=== PATIENT | male | born 1940 | race Caucasian/White ===

== ENCOUNTER 2023-06-10 22:03 | Inpatient (IN) ==
[2023-06-10 23:34] LABS: Adenovirus PCR Not Detected (NotDetected); Bordetella parapertussis PCR Not Detected (NotDetected); Bordetella pertussis PCR Not Detected (NotDetected); Chlamydia pneumoniae PCR Not Detected (NotDetected); Coronavirus 229E PCR Not Detected (NotDetected); Coronavirus HKU1 PCR Not Detected (NotDetected); Coronavirus NL63 PCR Not Detected (NotDetected); Coronavirus OC43PCR Not Detected (NotDetected); Human Metapneumovirus PCR Not Detected (NotDetected); Influenza A PCR Not Detected (NotDetected); Influenza B PCR Not Detected (NotDetected); Mycoplasma pneumoniae PCR Not Detected (NotDetected); Parainfluenza Virus 1 PCR Not Detected (NotDetected); Parainfluenza Virus 2 PCR Not Detected (NotDetected); Parainfluenza Virus 3 PCR Not Detected (NotDetected); Parainfluenza Virus 4 PCR Not Detected (NotDetected); Respiratory Syncytial VirusPCR Not Detected (NotDetected); Rhinovirus/Enterovirus PCR Not Detected (NotDetected)
[2023-06-10 23:45] LABS: Coronavirus CoV-2 (COVID19)PCR DETECTED (NotDetected)
--- NOTE | 2023-06-10 23:51 | XRay Report ---
SINGLE VIEW CHEST CLINICAL HISTORY: Sepsis FINDINGS: 2 AP upright chest radiographs are obtained. No prior studies are available for comparison at the time of dictation. A single-lead cardiac pacemaker is in place. The heart is enlarged noting a therosclerotic calcification of the thoracic aorta. The pulmonary vasculature is noncongested. A lobu lar density at the left lung base is indeterminate and may represent a Bochdalek hernia. The lungs an d pleural spaces are otherwise clear. No large pleural effusion or pneumothorax is seen. The skeletal structures are osteopenic. The bony thorax is grossly intact. IMPRESSION: 1. Cardiomegaly and cardiac pacemaker without radiographic evidence of congestive failure. 2. A lobular density at the left lung base is nonspecific and may represents a Bochdalek hernia. Airs pace consolidation is considered less likely. If warranted this could be further assessed with a ches t CT. ACT 112: Negative or not required by law. Electronically signed by: Alex Pham M.D. 06/10/2023 11:49 PM
[2023-06-11 03:00] LABS: Basophils # (auto) 0.07 K/uL (0.00-0.20); Basophils % (auto) 0.5 %; Eosinophils # (auto) 0.01 K/uL (0.00-0.50); Eosinophils % (auto) 0.1 %; Hematocrit (blood only) 42.6 % (42.0-52.0); Hemoglobin 14.5 g/dl (14.0-18.0); Immature Granulocytes # (auto) 0.15 K/uL (0.01-0.20); Immature Granulocytes % (auto) 1.1 %; Lymphocytes # (auto) 0.61 K/uL (1.20-3.40); Lymphocytes % (auto) 4.3 %; Mean Corpuscular Hemoglobin 27.9 pg (25.0-34.0); Mean Corpuscular Volume 82.1 fL (80.0-100.0); Mean Platelet Volume 9.7 fL (9.4-12.4); Monocytes # (auto) 1.56 K/uL (0.11-0.59); Neutrophils # (auto) 11.76 K/uL (1.40-6.50); Platelet Count 251 K/uL (130-400); RDW Coefficient of Variation 14.6 % (11.5-14.5); RDW Standard Deviation 42.9 fL (36.4-46.3); Red Blood Count 5.19 M/uL (4.70-6.10); White Blood Count 14.16 K/ul (4.8-10.8)
[2023-06-11 03:16] LABS: Alanine Aminotransferase 33 U/L (7-52); Albumin Globulin Ratio 1.4 (0.9-2); Albumin Level 4.3 gm/dl (3.4-5.0); Alkaline Phosphatase 92 U/L (34-104); Anion Gap 8 (3-11); Aspartate Aminotransferase 84 U/L (13-39); BUN Creatinine Ratio 27.9 (10-20); Bilirubin,Total 1.2 mg/dl (0.2-1.0); Blood Urea Nitrogen 17 mg/dl (6-23); Calcium 9.9 mg/dl (8.6-10.3); Carbon Dioxide 38 mmol/L (21-32); Chloride 84 mmol/L (98-107); Est GFR (African American) 107.8 ml/min; Globulin 3.1 gm/dl (2.5-4.0); Glucose 137 mg/dl (70-99(Fasting)); Magnesium 2.1 mg/dl (1.7-2.4); Sodium 130 mmol/L (136-145); Total Protein 7.4 gm/dl (6.0-8.3)
[2023-06-11 03:32] LABS: INR 1.1 (0.9-1.1); Partial Thromboplastin Ratio 1.4; Partial Thromboplastin Time 40 Seconds (21-31); Prothrombin Time 11.8 Seconds (9.0-12.0)
[2023-06-11 03:39] LABS: Troponin I High Sensitivity 129.5 pg/ml (0-20)
[2023-06-11] MEDS ORDERED: SODIUM CHLORIDE 0.9% 1,000 ML IV SCH (06:30)
--- NOTE | 2023-06-11 06:39 | Emergency Department Note ---
Impression & Plan Generalized weakness, Elevated troponin, COVID-19, Hypokalemia, Hyponatremia ED Provider Note ED Provider Note NAME: WADE VICENTE AGE:83 SEX: Male : 1940 ARRIVES VIA: Private vehicle INFORMANT: Patient, family ED PROVIDER(s): Danette Umana DO CHIEF COMPLAINT: Generalized weakness HPI: This is an 83-year-old male brought in by family due to concern for increased weakness. Patient typically very independent ambulatory on his own according to granddaughter at bedside. 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 No issues with the G-tube recently. They have noticed increased mucus production and spitting from the patient. He denies worsening cough, fevers, nasal congestion, difficulty breathing, chest pain, or abdominal pain. Daughter states he was unable to get up out of a chair and she and another family member had to physically help him up to get him to the bathroom which is unusual. No recent change in medications. Patient does have a history of A-fib. PAST MEDICAL HISTORY:See Below PAST SURGICAL HISTORY:See Below FAMILY HISTORY:See Below SOCIAL HISTORY:See Below HOME MEDICATIONS:See Below ALLERGIES:See Below VITALS:See Below PHYSICAL EXAMINATION: GENERAL: alert, well appearing, well nourished, no distress, non-toxic EYE EXAM: normal conjunctiva, PERRL and EOM's grossly intact OROPHARYNX: no exudate, no erythema, lips, buccal mucosa, and tongue normal and mucous membranes are moist NECK: supple, no nuchal rigidity, no adenopathy, non-tender LUNGS: Clear to auscultation. Normal chest wall mechanics, no w/r/r HEART: no murmurs, S1 normal and S2 normal ABDOMEN: abdomen soft, non-tender, normo-active bowel sounds, no masses, no rebound or guarding. G-tube in place SKIN: no rashes, petechiae, orbruising UPPER EXTREMITIES: upper extremities are grossly normal. FROM, nml pulses b/l. LOWER EXTREMITIES: No pitting edema. FROM, nml pulses b/l. NEURO EXAM: Normal sensorium, cranial nerves II-XII grossly intact, normal speech, no facial droop,nogross weakness of arms, no gross weakness of legs. Gross sensation intact. No ataxia. Vital Signs: reviewed and remarkable Differential Diagnosis: dehydration, stroke, anemia, hypoglycemia, hyponatremia, hypernatremia, urinary tract infection, pneumonia, bronchitis, sepsis, gastroenteritis, additional abdominal pathology, metabolic abnormalities, as well as others were considered MEDICAL DECISION MAKING: This is an 83-year-old male presents with family due to worsening weakness. Patient denied any other focal complaints during my discussion. Vital signs stable upon arrival. Labs drawn and sent, IV established, EKG and chest ray performed bedside interpreted by me and patient monitored on telemetry. Nasal swab started in triage by nursing staff per protocol as patient presented on day of high volume and acuity. Patient found to be COVID-positive. Patient also noted to have elevated troponin. He denied chest pain or difficulty breathing. It is unclear if this is related to a complication of COVID. I feel PE less likely as patient is anticoagulated due to history of atrial fibrillation and denies any recent missed doses. No prior EKGs for comparison. Patient does have history of CAD and prior stent placement per granddaughter. We discussed additional need for inpatient evaluation, they verbalized understanding are in agreement. Case discussed with Dr. Bautista for additional management. Consultation(s): 0635: Discussed with Dr. Bautista, [facility] hospitalist team, for additional evaluation and management ER Treatment Provided: See below Diagnostics Interpreted By Me: -ECG: Atrial fibrillation at 83, normal axis, normal QRS and QTc, inverted T waves noted in 2, 3, aVF, V3 through V6 -Cardiac Monitoring: An order was placed for continuous cardiac monitoring. The monitor shows a rate of 78 with A-fib rhythm. -Laboratory studies: As stated above and show below. -Imaging studies: X-ray Chest: A single view study of the chest was reviewed and was negative for cardiomegaly, focal infiltrate, effusion, pulmonary edema, or wide mediastinum. Pacemaker noted. Triage Nursing Note Reviewed Prior/Outside Records Reviewed Past Med/Surg History Medical History (Updated 06/12/23 @ 03:42 by Danette Umana DO) CVA (cerebral vascular accident) chronic aspiration. PEG tube in place CAD (coronary artery disease) Atrial fibrillation Surgical History (Updated 06/11/23 @ 07:17 by Michelle Bautista DO) Status post cardiac pacemaker procedure Family History (Updated 06/11/23 @ 07:18 by Michelle Bautista DO) Other Family history non-contributory Social History Smoking Status: Former smoker Hx Alcohol Use: No Hx Substance Use: No Preferred Language: Albanian Current Living Situation: Family Current Living Situation Comment: lives with daughter (has cerebral palsy), gets help from kids Feels Safe at Home: Yes Assistive Devices: Cane Allergies Allergies Allergy/AdvReac Type Severity Reaction Status Date / Time No Known Allergies Allergy Unverified 06/11/23 12:01 Home Meds Home Medications Medication Instructions Recorded Confirmed amlodipine 5 mg tablet 2.5 mg feeding tube DAILY 06/11/23 06/11/23 apixaban 5 mg tablet (Eliquis) 5 mg feeding tube BID 06/11/23 06/11/23 aspirin 81 mg PEG DAILY 06/11/23 06/11/23 digoxin 125 mcg (0.125 mg) tablet 125 mcg feeding tube DAILY 06/11/23 06/11/23 hydrochlorothiazide 25 mg tablet 25 mg feeding tube DAILY 06/11/23 06/11/23 metoprolol tartrate 50 mg tablet 50 mg feeding tube BID 06/11/23 06/11/23 simvastatin 20 mg tablet 20 mg feeding tube HS 06/11/23 06/11/23 Results & Data (ED) Vital Signs Vital Signs - 24 hr 06/11/23 04:37 06/11/23 05:57 06/11/23 06:00 Temperature 36.6 C Temperature Source Temporal Artery Scan Pulse Rate 86 101 H Pulse Rate from SpO2 Sensor 91 H 101 H Respiratory Rate 22 13 Blood Pressure 165/83 H 138/82 Blood Pressure Mean 110 100 Pulse Oximetry 92 96 Oxygen Delivery Method Room Air Room Air 06/11/23 06:07 06/11/23 06:31 Temperature Temperature Source Pulse Rate 80 80 Pulse Rate from SpO2 Sensor 87 Respiratory Rate 22 Blood Pressure 156/87 H Blood Pressure Mean 110 Pulse Oximetry 94 Oxygen Delivery Method Laboratory Data 06/11/23 02:33 06/11/23 02:33 Lab Results 06/10/23 06/11/23 06/11/23 Range/Units 22:13 02:33 05:53 WBC 14.16 H (4.8-10.8) K/ul RBC 5.19 (4.70-6.10) M/uL Hgb 14.5 (14.0-18.0) g/dl Hct 42.6 (42.0-52.0) % MCV 82.1 (80.0-100.0) fL MCH 27.9 (25.0-34.0) pg MCHC 34.0 (32.0-36.0) g/dL RDW Std Deviation 42.9 (36.4-46.3) fL RDW Coeff of Kathrin 14.6 H (11.5-14.5) % Plt Count 251 (130-400) K/uL MPV 9.7 (9.4-12.4) fL Immature Gran % (Auto) 1.1 % Neut % (Auto) 83.0 % Lymph % (Auto) 4.3 % [place] % (Auto) 11.0 % Eos % (Auto) 0.1 % Baso % (Auto) 0.5 % Neut # (Auto) 11.76 H (1.40-6.50) K/uL Lymph # (Auto) 0.61 L (1.20-3.40) K/uL [place] # (Auto) 1.56 H (0.11-0.59) K/uL Eos # (Auto) 0.01 (0.00-0.50) K/uL Baso # (Auto) 0.07 (0.00-0.20) K/uL Immature Gran # (Auto) 0.15 (0.01-0.20) K/uL PT 11.8 (9.0-12.0) Seconds INR 1.1 (0.9-1.1) APTT 40 H (21-31) Seconds PTT Ratio 1.4 Sodium 130 L (136-145) mmol/L Potassium 3.0 L (3.5-5.1) mmol/L Chloride 84 L (98-107) mmol/L Carbon Dioxide 38 H (21-32) mmol/L Anion Gap 8 (3-11) BUN 17 (6-23) mg/dl Creatinine 0.61 (0.6-1.4) mg/dl Est Cr Clr Drug Dosing Not Reportable Est GFR ( Amer) 107.8 ml/min Est GFR (Non-Af Amer) 93.0 ml/min BUN/Creatinine Ratio 27.9 H (10-20) Glucose 137 H (70-99(Fasting)) mg/dl Calcium 9.9 (8.6-10.3) mg/dl Magnesium 2.1 (1.7-2.4) mg/dl Total Bilirubin 1.2 H (0.2-1.0) mg/dl AST 84 H (13-39) U/L ALT 33 (7-52) U/L Alkaline Phosphatase 92 (34-104) U/L Troponin I High Sens 129.5 H* 145.9 H* (0-20) pg/ml Total Protein 7.4 (6.0-8.3) gm/dl Albumin 4.3 (3.4-5.0) gm/dl Globulin 3.1 (2.5-4.0) gm/dl Albumin/Globulin Ratio 1.4 (0.9-2) Adenovirus (PCR) Not Detected (NotDetected) B. pertussis DNA (PCR) Not Detected (NotDetected) B.parapertussis DNA PCR Not Detected (NotDetected) C. pneumoniae DNA (PCR) Not Detected (NotDetected) Coronavirus OC43 (PCR) Not Detected (NotDetected) Coronavirus HKU1 (PCR) Not Detected (NotDetected) Coronavirus 229E (PCR) Not Detected (NotDetected) SARS-CoV-2 (PCR) DETECTED A* (NotDetected) Coronavirus NL63 (PCR) Not Detected (NotDetected) Human Metapneumovir PCR Not Detected (NotDetected) Influenza Type A (PCR) Not Detected (NotDetected) Influenza Type B (PCR) Not Detected (NotDetected) M. pneumoniae (PCR) Not Detected (NotDetected) Parainfluenza 1 (PCR) Not Detected (NotDetected) Parainfluenza 2 (PCR) Not Detected (NotDetected) Parainfluenza 3 (PCR) Not Detected (NotDetected) Parainfluenza 4 (PCR) Not Detected (NotDetected) RSV (PCR) Not Detected (NotDetected) Entero/Rhino (PCR) Not Detected (NotDetected) Administered Medications Amlodipine Besylate (Amlodipine Besylate 5 Mg Tab) 2.5 mg PEG DAILY [facility] Stop: 07/11/23 09:41 Last Admin: 06/11/23 13:46 Dose: 2.5 mg Documented By: JOSE L Apixaban (Apixaban 5 Mg Tablet) 5 mg PO BID [facility] Stop: 07/11/23 12:49 Last Admin: 06/11/23 20:07 Dose: 5 mg Documented By: Admin: 06/11/23 13:48 Dose: 5 mg Documented By: JOSE L Aspirin (Aspirin 81 Mg Chew) 81 mg PEG DAILY [facility] Stop: 07/11/23 12:49 Last Admin: 06/11/23 13:48 Dose: 81 mg Documented By: JOSE L Digoxin (Digoxin 0.125 Mg Tab) 0.125 mg PO DAILY@1600 [facility] Stop: 07/11/23 15:59 Last Admin: 06/11/23 17:04 Dose: 0.125 mg Documented By: JOSE L Enteral Nutritional Formula (Fibersource Hn 1.2 David 1000 Ml Bag) 1,000 ml GT UD [facility]; Protocol Stop: 07/11/23 14:29 Last Admin: 06/11/23 17:31 Dose: 1,000 ml Documented By: JOSE L Metoprolol Tartrate (Metoprolol Tartrate 50 Mg Tab) 50 mg PEG BID [facility] Stop: 07/11/23 12:49 Last Admin: 06/11/23 20:07 Dose: 50 mg Documented By: Admin: 06/11/23 13:47 Dose: 50 mg Documented By: JOSE L Ondansetron HCl (Ondansetron Inj 2 Mg/Ml 2 Ml Vial) 4 mg IV Q6H PRN PRN Reason: Nausea Stop: 07/11/23 09:41 Last Admin: 06/11/23 22:17 Dose: 4 mg Documented By: CHAVEZ Simvastatin (Simvastatin 20 Mg Tab) 20 mg PEG HS [facility] Stop: 07/11/23 20:59 Last Admin: 06/11/23 20:07 Dose: 20 mg Documented By: CHAVEZ Sterile Water (Tube Feeding Water Flush) 100 ml PEG Q4H [facility] Stop: 07/11/23 14:44 Last Admin: 06/12/23 02:30 Dose: Not Given Documented By: Admin: 06/11/23 22:36 Dose: 100 ml Documented By: Admin: 06/11/23 19:39 Dose: 100 ml Documented By: Admin: 06/11/23 15:59 Dose: 100 ml Documented By: JOSE L Discontinued Medications Sodium Chloride (Nss) 1,000 mls @ 125 mls/hr IV .Q8H [facility] Stop: 07/11/23 06:29 Last Infusion: 06/11/23 11:15 Dose: Infused Documented By: JOSE L Admin: 06/11/23 07:45 Dose: 125 mls/hr Documented By: WILLIAM Lactated Ringer's (Lr) 500 mls @ 80 mls/hr IV .Q6H15M [facility] Stop: 06/11/23 15:56 Last Infusion: 06/11/23 17:30 Dose: Infused Documented By: Admin: 06/11/23 11:15 Dose: 80 mls/hr Documented By: JOSE L Remdesivir 200 mg/ Sodium (Chloride) 250 mls @ 125 mls/hr IV ONE STA; Protocol Stop: 06/11/23 14:49 Last Infusion: 06/11/23 15:59 Dose: Infused Documented By: JOSE L Admin: 06/11/23 13:42 Dose: 125 mls/hr Documented By: JOSE L Potassium Chloride (Potassium Chloride Crtab 20 Meq Tabcr) 60 meq PO NOW STA Stop: 06/11/23 12:51 Last Admin: 06/11/23 13:52 Dose: 60 meq Documented By: JOSE L Imaging Data Radiologist's Impression: Chest X-Ray 06/10/23 22:14 SINGLE VIEW CHEST CLINICAL HISTORY: Sepsis FINDINGS: 2 AP upright chest radiographs are obtained. No prior studies are available for comparison at the time of dictation. A single-lead cardiac pacemaker is in place. The heart is enlarged noting atherosclerotic calcification of the thoracic aorta. The pulmonary vasculature is noncongested. A lobular density at the left lung base is indeterminate and may represent a Bochdalek hernia. The lungs and pleural spaces are otherwise clear. No large pleural effusion or pneumothorax is seen. The skeletal structures are osteopenic. The bony thorax is grossly intact. IMPRESSION: 1. Cardiomegaly and cardiac pacemaker without radiographic evidence of congestive failure. 2. A lobular density at the left lung base is nonspecific and may represents a Bochdalek hernia. Airspace consolidation is considered less likely. If warranted this could be further assessed with a chest CT. ACT 112: Negative or not required by law. Electronically signed by: Alex Pham M.D. 06/10/2023 11:49 PM Discharge Plan Visit Data Chief Complaint: Weakness Stated Complaint: Weakness, Fever, Cough, Diarrhea ED Provider: Danette Umana Discharge Problem: Generalized weakness, Elevated troponin, COVID-19, Hypokalemia, Hyponatremia Patient Disposition: Admitted As Inpatient Discharge Instructions Interventions: ED Discharge Assessment Last Done: 06/11/23 10:28
--- NOTE | 2023-06-11 07:24 | History & Physical Report ---
Date of Service June 11, 2023 Assessment & Plan (1) COVID: Plan: With weakness. Respiratory status is stable at this time. Adequate oxygenation on room air. -Continue to monitor -Maintain isolation precautions -Continue Eliquis -No treatment with Dexamethasone or Remdesivir at this time (2) Elevated troponin: Plan: Increasing troponin 129 --> 145. Some non-specific ST-T wave changes present on EKG. Patient denies chest pain. Patient and family would not opt for invasive procedure at this time. -Telemetry monitoring -Trend troponin (3) CVA (cerebral vascular accident): Plan: Chronic -Continue ASA 81mg po daily -Continue Simvastatin PEG tube in place. Patient is strict NPO. Medications are crushed and adminis tered through tube -Jevity 1.5 QID at 0900, 1300, 1700 and 2100 with free water flushes (4) CAD (coronary artery disease): Plan: Chronic. -Trending troponin as above -Continue ASA, Metoprolol, Simvastatin (5) Atrial fibrillation: Plan: Rate controlled -Continue Digoxin -Continue Metoprolol -Continue Eliquis (6) Hypokalemia: Plan: K=3 -Potassium 60mEq -Repeat chemistry History of Present Illness Chief Complaint: weakness Primary Care Provider: DO Tiffany Sepulvedalakeisha Cruz is an 83yo male presenting with Covid-19 and weakness. Patient with history of AF on Eliquis anticoagulation, prior CVA with chronic aspiration - PEG tube in place, CAD. He was in his usual state of health until yesterday when he was noted to be profoundly weak. Fever to 101.3. He had several episodes of diarrhea as well as urinary incontinence. Patient slid out of his chair onto the floor and was unable to get up due to weakness. This prompted his family to bring him to the ER. No report of chest pain, palpitation or shortness of breath. No vomiting. No additional complaints at this time. At baseline patient lives alone and is independent Family helps to care for him and administer medications Home Medications Medication Instructions Recorded Confirmed Type amlodipine 5 mg tablet 2.5 mg feeding tube DAILY 06/11/23 06/11/23 History apixaban 5 mg tablet (Eliquis) 5 mg feeding tube BID 06/11/23 06/11/23 History aspirin 81 mg PEG DAILY 06/11/23 06/11/23 History digoxin 125 mcg (0.125 mg) tablet 125 mcg feeding tube DAILY 06/11/23 06/11/23 History hydrochlorothiazide 25 mg tablet 25 mg feeding tube DAILY 06/11/23 06/11/23 History metoprolol tartrate 50 mg tablet 50 mg feeding tube BID 06/11/23 06/11/23 History simvastatin 20 mg tablet 20 mg feeding tube HS 06/11/23 06/11/23 History Past Med/Surg History Medical History (Updated 06/11/23 @ 07:16 by Michelle Bautista DO) CVA (cerebral vascular accident) chronic aspiration. PEG tube in place CAD (coronary artery disease) Atrial fibrillation Surgical History (Updated 06/11/23 @ 07:17 by Michelle Bautista DO) Status post cardiac pacemaker procedure Family History (Updated 06/11/23 @ 07:18 by Michelle Bautista DO) Other Family history non-contributory Social History Smoking Status: Former smoker Preferred Language: Welsh Review of Systems Review of Systems: All systems reviewed & are unremarkable except as noted in HPI & below Physical Exam Physical Exam: General: patient resting comfortably, NAD, non-toxic in appearance, AA&O x 4 Skin: warm, dry, intact, no rashes or lesions HEENT: NC/AT, PERRL, EOMI, anicteric sclera, conjunctiva without injection, external ear normal to inspection and nontender, nares patent, moist mucus membranes, dentition intact, no oropharyngeal lesions, neck supple, trachea midline, no LAD, no thyromegaly, no JVD Heart: +S1/S2, irregularly irregular, no m/r/g Lungs: equal air entry bilaterally, no rales/rhonchi/wheezes Abd: +BS, soft, NT/ND, no masses/organomegaly/ascites, PEG tube site clean and dry, no bleeding/erythema or drainage Ext: warm, 2+ pulses in UE/LE bilaterally, no clubbing/cyanosis or edema Neuro: nonfocal, patient AA&O x 4, speech intact, no facial droop, moving all extremities on command with equal strength 5/5 Results & Data Results & Data Vital Signs (Past 12 Hours) Vital Signs Temp Pulse Resp BP Pulse Ox O2 Del Method 06/11/23 06:07 80 06/11/23 06:00 101 H 13 138/82 96 Room Air 06/11/23 05:57 86 22 165/83 H 92 Room Air 06/11/23 04:37 36.6 C 06/10/23 22:08 36.6 C 83 20 141/73 H 95 Room Air Laboratory Results Laboratory Results WBC 14.16 K/ul (4.8-10.8) H 06/11/23 02:33 RBC 5.19 M/uL (4.70-6.10) 06/11/23 02:33 Hgb 14.5 g/dl (14.0-18.0) 06/11/23 02:33 Hct 42.6 % (42.0-52.0) 06/11/23 02:33 MCV 82.1 fL (80.0-100.0) 06/11/23 02:33 MCH 27.9 pg (25.0-34.0) 06/11/23 02:33 MCHC 34.0 g/dL (32.0-36.0) 06/11/23 02:33 RDW Std Deviation 42.9 fL (36.4-46.3) 06/11/23 02:33 RDW Coeff of Kathrin 14.6 % (11.5-14.5) H 06/11/23 02:33 Plt Count 251 K/uL (130-400) 06/11/23 02:33 MPV 9.7 fL (9.4-12.4) 06/11/23 02:33 Immature Gran % (Auto) 1.1 % 06/11/23 02:33 Neut % (Auto) 83.0 % 06/11/23 02:33 Lymph % (Auto) 4.3 % 06/11/23 02:33 [place] % (Auto) 11.0 % 06/11/23 02:33 Eos % (Auto) 0.1 % 06/11/23 02:33 Baso % (Auto) 0.5 % 06/11/23 02:33 Neut # (Auto) 11.76 K/uL (1.40-6.50) H 06/11/23 02:33 Lymph # (Auto) 0.61 K/uL (1.20-3.40) L 06/11/23 02:33 [place] # (Auto) 1.56 K/uL (0.11-0.59) H 06/11/23 02:33 Eos # (Auto) 0.01 K/uL (0.00-0.50) 06/11/23 02:33 Baso # (Auto) 0.07 K/uL (0.00-0.20) 06/11/23 02:33 Immature Gran # (Auto) 0.15 K/uL (0.01-0.20) 06/11/23 02:33 PT 11.8 Seconds (9.0-12.0) 06/11/23 02:33 INR 1.1 (0.9-1.1) 06/11/23 02:33 APTT 40 Seconds (21-31) H 06/11/23 02:33 PTT Ratio 1.4 06/11/23 02:33 Sodium 130 mmol/L (136-145) L 06/11/23 02:33 Potassium 3.0 mmol/L (3.5-5.1) L 06/11/23 02:33 Chloride 84 mmol/L (98-107) L 06/11/23 02:33 Carbon Dioxide 38 mmol/L (21-32) H 06/11/23 02:33 Anion Gap 8 (3-11) 06/11/23 02:33 BUN 17 mg/dl (6-23) 06/11/23 02:33 Creatinine 0.61 mg/dl (0.6-1.4) 06/11/23 02:33 Est Cr Clr Drug Dosing Not Reportable 06/11/23 02:33 Est GFR ( Amer) 107.8 ml/min 06/11/23 02:33 Est GFR (Non-Af Amer) 93.0 ml/min 06/11/23 02:33 BUN/Creatinine Ratio 27.9 (10-20) H 06/11/23 02:33 Glucose 137 mg/dl (70-99(Fasting)) H 06/11/23 02:33 Calcium 9.9 mg/dl (8.6-10.3) 06/11/23 02:33 Magnesium 2.1 mg/dl (1.7-2.4) 06/11/23 02:33 Total Bilirubin 1.2 mg/dl (0.2-1.0) H 06/11/23 02:33 AST 84 U/L (13-39) H 06/11/23 02:33 ALT 33 U/L (7-52) 06/11/23 02:33 Alkaline Phosphatase 92 U/L (34-104) 06/11/23 02:33 Troponin I High Sens 145.9 pg/ml (0-20) H* 06/11/23 05:53 Total Protein 7.4 gm/dl (6.0-8.3) 06/11/23 02:33 Albumin 4.3 gm/dl (3.4-5.0) 06/11/23 02:33 Globulin 3.1 gm/dl (2.5-4.0) 06/11/23 02:33 Albumin/Globulin Ratio 1.4 (0.9-2) 06/11/23 02:33 Adenovirus (PCR) Not Detected (NotDetected) 06/10/23 22:13 B. pertussis DNA (PCR) Not Detected (NotDetected) 06/10/23 22:13 B.parapertussis DNA PCR Not Detected (NotDetected) 06/10/23 22:13 C. pneumoniae DNA (PCR) Not Detected (NotDetected) 06/10/23 22:13 Coronavirus OC43 (PCR) Not Detected (NotDetected) 06/10/23 22:13 Coronavirus HKU1 (PCR) Not Detected (NotDetected) 06/10/23 22:13 Coronavirus 229E (PCR) Not Detected (NotDetected) 06/10/23 22:13 SARS-CoV-2 (PCR) DETECTED (NotDetected) A* 06/10/23 22:13 Coronavirus NL63 (PCR) Not Detected (NotDetected) 06/10/23 22:13 Human Metapneumovir PCR Not Detected (NotDetected) 06/10/23 22:13 Influenza Type A (PCR) Not Detected (NotDetected) 06/10/23 22:13 Influenza Type B (PCR) Not Detected (NotDetected) 06/10/23 22:13 M. pneumoniae (PCR) Not Detected (NotDetected) 06/10/23 22:13 Parainfluenza 1 (PCR) Not Detected (NotDetected) 06/10/23 22:13 Parainfluenza 2 (PCR) Not Detected (NotDetected) 06/10/23 22:13 Parainfluenza 3 (PCR) Not Detected (NotDetected) 06/10/23 22:13 Parainfluenza 4 (PCR) Not Detected (NotDetected) 06/10/23 22:13 RSV (PCR) Not Detected (NotDetected) 06/10/23 22:13 Entero/Rhino (PCR) Not Detected (NotDetected) 06/10/23 22:13 Impressions Chest X-Ray 06/10/23 22:14 SINGLE VIEW CHEST CLINICAL HISTORY: Sepsis FINDINGS: 2 AP upright chest radiographs are obtained. No prior studies are available for comparison at the time of dictation. A single-lead cardiac pacemaker is in place. The heart is enlarged noting atherosclerotic calcification of the thoracic aorta. The pulmonary vasculature is noncongested. A lobular density at the left lung base is indeterminate and may represent a Bochdalek hernia. The lungs and pleural spaces are otherwise clear. No large pleural effusion or pneumothorax is seen. The skeletal structures are osteopenic. The bony thorax is grossly intact. IMPRESSION: 1. Cardiomegaly and cardiac pacemaker without radiographic evidence of congestive failure. 2. A lobular density at the left lung base is nonspecific and may represents a Bochdalek hernia. Airspace consolidation is considered less likely. If warranted this could be further assessed with a chest CT. ACT 112: Negative or not required by law. Electronically signed by: Alex Pham M.D. 06/10/2023 11:49 PM ECG Additional Comments: EKG per my interpretation - AF at 83, normal axis, QRS=80, GIy=860, some ST-T wave abnormality PG Care Time/CCT Total # of Minutes Spent Total Time Spent with Patient: Total time spent is greater than 50% in coordination of care (as documented) at patient's floor/unit and/or counseling patient: Coding Level of Care Code 53009 INT INP/OBS CARE 2/55MIN Diagnoses COVID U07.1 Elevated troponin R79.89 CVA (cerebral vascular accident) I63.9 CAD (coronary artery disease) I25.10 Atrial fibrillation I48.91 Hypokalemia E87.6
--- NOTE | 2023-06-11 08:01 | Electrocardiogram Report ---
Test Reason : Blood Pressure : / mmHG Vent. Rate : 083 BPM Atrial Rate : 000 BPM P-R Int : 000 ms QRS Dur : 080 ms QT Int : 388 ms P-R-T Axes : 000 051 -63 degrees QTc Int : 455 ms Atrial fibrillation Abnormal ECG No previous ECGs available Confirmed by Raghu Dover ([id number]) on 06/11/2023 8:00:47 AM Referred By: REFERRED SELF Confirmed By:Raghu Dover
[2023-06-11] MEDS ORDERED: ACETAMINOPHEN 325 MG TAB PO PRN (09:42)
[2023-06-11] MEDS ORDERED: ONDANSETRON INJ 2 MG/ML 2 ML VIAL IV PRN (09:42)
[2023-06-11] MEDS ORDERED: amLODIPine BESYLATE 5 MG TAB PEG SCH (09:42)
[2023-06-11] MEDS ORDERED: LACTATED RINGER'S 500 ML IV SCH (09:42)
[2023-06-11] MEDS ORDERED: DOCUSATE SODIUM 100 MG CAP PO PRN (09:42)
[2023-06-11] MEDS ORDERED: guaiFENesin/DEXTROM SYRUP 100MG/10MG 5ML UDC PO PRN (09:42)
[2023-06-11] MEDS ORDERED: Patient's ALLERGY Info needs ENTERED SCH (10:00)
[2023-06-11] MEDS ORDERED: hydroCHLOROthiazide 25 MG TAB PEG SCH (12:50)
[2023-06-11] MEDS ORDERED: REMDESIVIR 200 MG in SODIUM CHLORIDE 0.9% 210 ML IV STA (12:50)
[2023-06-11] MEDS ORDERED: POTASSIUM CHLORIDE CRTAB 20 MEQ TABCR PO STA (12:50)
[2023-06-11] MEDS: METOPROLOL TARTRATE 50 MG TAB PEG SCH ×2 (13:47→20:07)
[2023-06-11] MEDS: APIXABAN 5 MG TABLET PO SCH ×2 (13:48→20:07)
[2023-06-11] MEDS: ASPIRIN 81 MG CHEW PEG SCH (13:48)
[2023-06-11] MEDS: TUBE FEEDING WATER FLUSH PEG SCH ×3 (15:59→22:36)
--- NOTE | 2023-06-11 16:55 | Communication Note ---
Date of Service: June 11, 2023 Mr Cruz is an 83 y/o with history of afib and stroke with resultant dysphagia admitted with COVID-19 causing severe weakness and unable to ambulate. Lives at home with family nearby. Sx started a few days ago, not vaccinated, however this is third episode of COVID-19. History provided by his daughter at bedside. Not hypoxic. On exam elderly gentleman, alert, sitting up in bed, frequent coarse cough, breath sounds slightly coarse anteriorly, coarse bilaterally posteriorly no wheezing good air mvt. gtube LUQ c/d/i abdomen nontender nondistended +BT HEart reg no JVD or LE edema. Continue plan per Dr. Bautista's note this AM Discussed remdesivir with his daughter and she wishes to initiate this. Plan 3- 5 day course depending on whether his symptoms remain mild or worsen. Discussed risks:benefits including risks of kidney or liver injury, for which we will monitor. Steroids not indicated at this time.
[2023-06-11] MEDS: DIGOXIN 0.125 MG TAB PO SCH (17:04)
[2023-06-11] MEDS: FIBERSOURCE HN 1.2 CAL 1000 ML BAG GT SCH (17:31)
[2023-06-11 19:59] LABS: Appearance Urine Clear (Clear); Bacteria Urine Automated Negative (Negative); Bilirubin Urine Negative (Negative); Blood Urine Negative (Negative); Color Urine Dark Yellow; Glucose Urine UA Negative (Negative); Ketones Urine Negative (Negative); Leukocyte Esterase Urine Negative (Negative); Nitrite Urine Negative (Negative); Protein Urine 1+ (Negative); Urobilinogen Urine Negative (Negative)
[2023-06-11] MEDS: SIMVASTATIN 20 MG TAB PEG SCH (20:07)
[2023-06-12] MEDS: TUBE FEEDING WATER FLUSH PEG SCH ×6 (02:30→23:25)
--- NOTE | 2023-06-12 03:53 | Communication Note ---
Date of Service: June 12, 2023 Notified overnight that patient's PEG tube fell out as he was getting out of bed. In order to keep PEG tube tract patent, placed a montague into the site and clamped external opening to prevent reflux. This was performed sterilely at bedside with Dr. Bautista. He will not be getting tube feeds overnight due to this. GI consulted for PEG tube placement. Resident Activity Tracking Resident Involvement: Resident Care Provided Care Provided: [facility]
[2023-06-12 06:55] LABS: Hematocrit (blood only) 37.8 % (42.0-52.0); Hemoglobin 12.6 g/dl (14.0-18.0); Mean Corpuscular Hemoglobin 27.3 pg (25.0-34.0); Mean Corpuscular Hgb Conc 33.3 g/dL (32.0-36.0); Mean Platelet Volume 9.9 fL (9.4-12.4); Platelet Count 224 K/uL (130-400); RDW Standard Deviation 45.2 fL (36.4-46.3); Red Blood Count 4.61 M/uL (4.70-6.10); White Blood Count 11.06 K/ul (4.8-10.8)
[2023-06-12 07:19] LABS: Albumin Level 3.5 gm/dl (3.4-5.0); BUN Creatinine Ratio 28.6 (10-20); Bilirubin Direct 0.2 mg/dl (0-0.2); Bilirubin,Total 0.9 mg/dl (0.2-1.0); Calcium 8.9 mg/dl (8.6-10.3); Creatinine Clr Calc Pharmacy 95.1 ml/min; Est GFR (African American) 111.6 ml/min; Est GFR (Non-African American) 96.3 ml/min; Potassium 3.3 mmol/L (3.5-5.1)
[2023-06-12] MEDS ORDERED: D5W AND 1/2NSS + 20MEQ KCL 20 MEQ/1,000 ML BAG IV SCH (08:15)
--- NOTE | 2023-06-12 08:20 | Hospitalist Progress Note ---
Date of Service June 12, 2023 Assessment & Plan (1) COVID: Plan: With weakness cough and constitutional symptoms. Was unable to ambulate and far below functional baseline. Not hypoxic. -continue remdesivir since high risk for severe disease due to medical comorbidities, age, unvaccinated -if remains mild may stop after three doses. Today is day 2. monitor LFT and BMP while on RDV -normally on apixaban last dose 06/11 pm, held because g-tube fell out, ordered to resume tonight -PT/OT evals pending (2) Gastrojejunostomy tube dislodgement: Plan: G-tube fell out overnight, night physicians placed montague in the chronic tract Chronically feeding tube dependent for nutrtion and meds because of dysphagia and aspiration following previous stroke -maintenance IV fluids ordered D51/2NS+20K at 80 -consulted gastroenterology -Dr. Paige replaced G-tube at bedside today (3) Elevated troponin: Plan: Setting underlying CAD Increasing troponin 129 --> 145. Some non-specific ST-T wave changes present on EKG. Patient denies chest pain. Patient and family would not opt for invasive procedure at this time and requested no further Tn checks. -mild troponin elevation likely related to demand ischemia from COVID-19 -Continue ASA, Metoprolol, Simvastatin (4) CVA (cerebral vascular accident): Plan: Chronic -Continue ASA 81mg po daily -Continue Simvastatin PEG tube in place. Patient is strict NPO. Medications are crushed and administered through tube -Jevity 1.5 QID at 0900, 1300, 1700 and 2100 with free water flushes (5) CAD (coronary artery disease): Plan: See above (6) Atrial fibrillation: Plan: Rate controlled -Continue Digoxin -Continue Metoprolol - oral held, ordered 2.5 IV q6h until oral can be resumed - resume tonight l -Continue Eliquis (7) Hypokalemia: Plan: K=3 on admission -Potassium 60mEq given 06/12, mildly low at 3.3 today -replacement fluids with 20 K ordered until TF restarted -Repeat chemistry AM Admission and Anticipated Discharge Date Admission Date: June 11, 2023 Subjective G-tube fell out overnight, night physicians placed montague in the chronic tract Continues to be weak with a lot of coughing, sputum and nasal mucus Daughter reports he always coughs a lot because he does aspirate periodically Physical Exam 2 Physical Exam: PHYSICAL EXAMINATION Last 24h vital signs reviewed, see documentation in flowsheet General: Sitting up in bed, blowing nose frequently, frequent cough HEENT: Normocephalic, atraumatic, pupils round and equal, sclerae anicteric, no conjunctival injection, moist mucus membranes Lungs: Normal respiratory effort. Coarse bilaterally scattered rhonchi all son. No wheezing Heart: Regular rate and rhythm, no murmurs. No JVD Abdomen: Soft, nontender, nondistended. Bowel sounds present. Montague catheter present in gastrostomy site Extremities: Warm, dry, well-perfused. No extremity edema. Neuro: Alert, speech a little hard to understand, moves 4 extremities well Psych: Normal affect and behavior Results & Data Results & Data Vital Signs (Past 12 Hours) Vital Signs Temp Pulse Pulse Resp BP Pulse Ox O2 Del Method 06/12/23 03:40 37.1 C 70 18 144/64 H 93 Room Air 06/12/23 01:00 Room Air 06/11/23 22:20 37.4 C 77 20 152/67 H 94 Room Air 06/11/23 21:57 73 Laboratory Results 06/12/23 06:13 06/12/23 06:13 PG Care Time/CCT Total # of Minutes Spent Total Time Spent with Patient: Total time spent is greater than 50% in coordination of care (as documented) at patient's floor/unit and/or counseling patient: Coding Level of Care Code 02498 SUB INP/OBS CARE 2/35MIN Diagnoses COVID U07.1 Gastrojejunostomy tube dislodgement T85.528A Elevated troponin R79.89 CVA (cerebral vascular accident) I63.9 CAD (coronary artery disease) I25.10 Atrial fibrillation I48.91 Hypokalemia E87.6
[2023-06-12] MEDS: REMDESIVIR 100 MG in SODIUM CHLORIDE 0.9% 230 ML IV SCH (11:52)
[2023-06-12] MEDS ORDERED: METOPROLOL TARTRATE 1 MG/ML VIAL IV SCH (12:00)
--- NOTE | 2023-06-12 13:25 | Gastrointestinal Consultation ---
Date of Consultation June 12, 2023 Assessment & Plan (1) COVID: (2) Gastrojejunostomy tube dislodgement: PEG tube was replaced at the bedside without complications following informed consent being obtained. Covidien 22 f replacement PEG Tube was placed, external bumper was 3.5 cm PEG tube is OK to use at present time Continue current therapy and supportive care Re-consult as needed. History of Present Illness Reason for Consultation: PEG Tube dislodgement Attending Physician: Michelle Bautista DO History of Present Illness 83 yo CM with an extensive PMHx including CVA s/p PEG tube placement on Jevity tube feeds at home, who presented to the ER with weakness and lethargy. He was found to be COVID positive, but was stable from respiratory standpoint. He was also noted to have an increased Troponin. He was admitted for supportive care. During the night, his PEG tube was dislodged and night time Resident physician placed a Mejia catheter in the PEG tract. His granddaughter who is at his bedside states the tube was initially placed in 2021, and he has had a single PEG tube change since that time. The patient denies any pain at the PEG site or leakage. He states that the tube got stuck in his blankets last night and became dislodged. He denies any fevers, chills, nausea, vomiting, hematemesis, melena, hematochezia, diarrhea, or abdominal pain. He has no further complaints. Allergies Allergy/AdvReac Type Severity Reaction Status Date / Time No Known Allergies Allergy Unverified 06/11/23 12:01 Home Medications Medication Instructions Recorded Confirmed Type amlodipine 5 mg tablet 2.5 mg feeding tube DAILY 06/11/23 06/11/23 History apixaban 5 mg tablet (Eliquis) 5 mg feeding tube BID 06/11/23 06/11/23 History aspirin 81 mg PEG DAILY 06/11/23 06/11/23 History digoxin 125 mcg (0.125 mg) tablet 125 mcg feeding tube DAILY 06/11/23 06/11/23 History hydrochlorothiazide 25 mg tablet 25 mg feeding tube DAILY 06/11/23 06/11/23 History metoprolol tartrate 50 mg tablet 50 mg feeding tube BID 06/11/23 06/11/23 History simvastatin 20 mg tablet 20 mg feeding tube HS 06/11/23 06/11/23 History Patient History Medical History CVA (cerebral vascular accident) chronic aspiration. PEG tube in place CAD (coronary artery disease) Atrial fibrillation Surgical History Status post cardiac pacemaker procedure Family History Other Family history non-contributory Social History Smoking Status: Former smoker Hx Alcohol Use: No Hx Substance Use: No Preferred Language: Bermudian Communication Ability: Effective Current Living Situation: Family Current Living Situation Comment: lives with daughter (has cerebral palsy), gets help from kids Feels Safe at Home: Yes Assistive Devices: Cane and Walker Review of Systems Review of Systems: All systems reviewed & are unremarkable except as noted in Subjective Physical Exam Constitutional: WD/WN, vitals as above Chronic ill-appearing, NAD Respiratory: normal respiratory effort, lungs clear to auscultation Cardiovascular: RRR, no murmur, no edema Gastrointestinal (Abdomen): normal bowel sounds, soft, nontender, no hepatosplenomegaly Skin: no rashes, warm and dry Psychiatric: A+Ox3, euthymic affect Results & Data Vital Signs (Past 12 Hours) Vital Signs Temp Pulse Pulse Pulse Resp BP BP 06/12/23 12:41 18 06/12/23 12:40 93 H 145/79 H 06/12/23 11:51 86 145/80 H 06/12/23 08:45 06/12/23 08:34 36.8 C 85 18 153/86 H 06/12/23 08:00 93 H 06/12/23 03:40 37.1 C 70 18 BP Pulse Ox O2 Del Method 06/12/23 12:41 95 Room Air 06/12/23 12:40 06/12/23 11:51 06/12/23 08:45 Room Air 06/12/23 08:34 96 Room Air 06/12/23 08:00 06/12/23 03:40 144/64 H 93 Room Air PG Care Time/CCT Total # of Minutes Spent Total Time Spent with Patient: Total time spent is greater than 50% in coordination of care (as documented) at patient's floor/unit and/or counseling patient: Coding Level of Care Code 94432 IN/OBS CONSULT LVL 4,60M Diagnoses COVID U07.1 Gastrojejunostomy tube dislodgement T85.528A
[2023-06-12] MEDS: FIBERSOURCE HN 1.2 CAL 1000 ML BAG GT SCH (14:18)
[2023-06-12] MEDS: DIGOXIN 0.125 MG TAB PO SCH (17:33)
--- NOTE | 2023-06-12 19:10 | Communication Note ---
Date of Service: June 12, 2023 Notified there is a luer-lock on gtube which is preventing crushed meds from being given. Available staff unable to find connector. Will need to be add ressed when endoscopy or central supply staff available. Held meds per g-tube. Ordered metoprolol 2.5 mg IV q6h for rate control and hypertension.
[2023-06-12] MEDS: METOPROLOL TARTRATE 1 MG/ML VIAL IV SCH ×2 (20:32→23:24)
[2023-06-12] MEDS: APIXABAN 5 MG TABLET PO SCH (21:23)
[2023-06-13] MEDS: TUBE FEEDING WATER FLUSH PEG SCH ×6 (03:30→23:26)
[2023-06-13] MEDS: METOPROLOL TARTRATE 1 MG/ML VIAL IV SCH ×2 (05:56→13:31)
[2023-06-13] MEDS: APIXABAN 5 MG TABLET PO SCH ×2 (08:42→20:39)
[2023-06-13 09:43] LABS: Basophils # (auto) 0.03 K/uL (0.00-0.20); Basophils % (auto) 0.3 %; Eosinophils # (auto) 0.05 K/uL (0.00-0.50); Eosinophils % (auto) 0.5 %; Hematocrit (blood only) 39.9 % (42.0-52.0); Hemoglobin 13.4 g/dl (14.0-18.0); Immature Granulocytes # (auto) 0.05 K/uL (0.01-0.20); Immature Granulocytes % (auto) 0.5 %; Lymphocytes % (auto) 5.2 %; Mean Corpuscular Hemoglobin 27.8 pg (25.0-34.0); Mean Corpuscular Hgb Conc 33.6 g/dL (32.0-36.0); Mean Corpuscular Volume 82.8 fL (80.0-100.0); Mean Platelet Volume 9.5 fL (9.4-12.4); Monocytes # (auto) 1.21 K/uL (0.11-0.59); Monocytes % (auto) 12.6 %; Neutrophils % (auto) 80.9 %; Platelet Count 244 K/uL (130-400); RDW Coefficient of Variation 14.9 % (11.5-14.5); RDW Standard Deviation 45.4 fL (36.4-46.3); Red Blood Count 4.82 M/uL (4.70-6.10); White Blood Count 9.64 K/ul (4.8-10.8)
[2023-06-13 09:57] LABS: Calcium 9.2 mg/dl (8.6-10.3); Creatinine Clr Calc Pharmacy 88.7 ml/min; Est GFR (African American) 108.5 ml/min; Est GFR (Non-African American) 93.6 ml/min; Potassium 3.5 mmol/L (3.5-5.1)
[2023-06-13] MEDS: POLYETHYLENE (MIRALAX) 17 GM PACK PEG SCH (13:32)
[2023-06-13] MEDS: REMDESIVIR 100 MG in SODIUM CHLORIDE 0.9% 230 ML IV SCH (13:34)
[2023-06-13] MEDS: FIBERSOURCE HN 1.2 CAL 1000 ML BAG GT SCH (14:06)
--- NOTE | 2023-06-13 16:12 | Hospitalist Progress Note ---
Date of Service June 13, 2023 Assessment & Plan (1) COVID: Plan: mild disease, but at risk of disease progression. thus, receiving IV remdesivir. day #3 of such. no hypoxia or pneumonia - deferring on dexamethasone. AST minimally elevated but stable. ALT wnl. cont airborne precautions. (2) Gastrojejunostomy tube dislodgement: Plan: PEG tube got dislodged on 06/12/23. GI consulted; Dr Paige placed a new tube on 06/12. Adaptor now in place and tube working without issues. Typical PEG tube feeding regimen - Jevity 1.5 QID at 0900, 1300, 1700 and 2100 with free water flushes Using tube feeding equivalent of such while here. (3) Elevated troponin: Plan: HS troponin 129 --> 145, then fell. ST-T wave changes present on EKG. Patient without chest pain. Patient and family would not opt for invasive procedure at this time and requested no further Troponin checks. In fact I tried to get an EKG today for stability purposes and he declined the EKG. At minimum the mild troponin elevation was likely due to myocardial demand ischemia from his COVID-19 illness. Continue ASA, Metoprolol, Simvastatin. (4) CVA (cerebral vascular accident): Plan: Continue ASA 81mg po daily and Simvastatin for secondary prevention. NPO due to prior CVA. PEG tube in place. Patient is strict NPO. Medications are crushed and administered through tube. (5) CAD (coronary artery disease): Plan: Details of his CAD are uncertain Cont asa Cont statin Cont BB Troponin elevation noted (6) Atrial fibrillation: Plan: Continue Digoxin Continue Metoprolol BID Continue Eliquis BID (7) Hypokalemia: Plan: replaced resolved (8) Epistaxis: Plan: has such at home from time to time this is in the setting of chronic asa and Eliquis use bleeding occurred from R nare earlier today now resolved bactroban ointment BID to keep nose moist afrin nasal spray prn for active bleed nasal saline spray prn for dryness Plan DVT proph - Eliquis await PT/OT evals to determine disposition updated pt's son Mason by phone this evening Admission and Anticipated Discharge Date Admission Date: June 11, 2023 Subjective no events overnight some issues with PEG tube and using it for meds however they have secured an ada ptor this resolved the issue and PEG is now working fine for crushed medications pt watching football during the visit c/o fatigue and some cough only denies dyspnea Review of Systems Review of Systems: gen - no fevers or chills cv - no chest pain neuro - no headache musculo - no myalgia GI - no nausea/emesis HENT - mild nosebleed right nare earlier in the afternoon Physical Exam Physical Exam: gen - NAD, mild cough mouth - MMM neck - no JVD nose - no active bleeding either nare heart - irregularly irregular, s1 s2 lungs - CTA b/l; no rales, no wheeze abd - soft NT ND BS+; PEG tube insertion site clean/dry ext - no edema, pulses 2+ b/l Results & Data Results & Data Vital Signs (Past 12 Hours) Vital Signs Temp Pulse Pulse Resp BP BP Pulse Ox 06/13/23 16:11 73 06/13/23 13:56 83 06/13/23 11:48 37.3 C 92 H 16 149/86 H 96 06/13/23 08:09 37.0 C 84 16 151/78 H 93 06/13/23 07:45 06/13/23 07:25 98 H 06/13/23 06:15 84 134/76 06/13/23 05:56 90 149/76 H O2 Del Method 06/13/23 16:11 06/13/23 13:56 06/13/23 11:48 Room Air 06/13/23 08:09 Room Air 06/13/23 07:45 Room Air 06/13/23 07:25 06/13/23 06:15 06/13/23 05:56 Laboratory Results Laboratory Results - last 24 hr 06/13/23 09:28 WBC 9.64 RBC 4.82 Hgb 13.4 L Hct 39.9 L MCV 82.8 MCH 27.8 MCHC 33.6 RDW Std Deviation 45.4 RDW Coeff of Kathrin 14.9 H Plt Count 244 MPV 9.5 Immature Gran % (Auto) 0.5 Neut % (Auto) 80.9 Lymph % (Auto) 5.2 [place] % (Auto) 12.6 Eos % (Auto) 0.5 Baso % (Auto) 0.3 Neut # (Auto) 7.80 H Lymph # (Auto) 0.[address] [place] # (Auto) 1.21 H Eos # (Auto) 0.05 Baso # (Auto) 0.03 Immature Gran # (Auto) 0.05 Sodium 136 Potassium 3.5 Chloride 95 L Carbon Dioxide 35 H Anion Gap 6 BUN 18 Creatinine 0.60 Est Cr Clr Drug Dosing 88.7 Est GFR ( Amer) 108.5 Est GFR (Non-Af Amer) 93.6 BUN/Creatinine Ratio 30.0 H Glucose 127 H Calcium 9.2 AST 44 H ALT 23 PG Care Time/CCT Total # of Minutes Spent Total Time Spent with Patient: Total time spent is greater than 50% in coordination of care (as documented) at patient's floor/unit and/or counseling patient: Coding Level of Care Code 93216 SUB INP/OBS CARE 2/35MIN Diagnoses COVID U07.1 Gastrojejunostomy tube dislodgement T85.528A Elevated troponin R79.89 CVA (cerebral vascular accident) I63.9 CAD (coronary artery disease) I25.10 Atrial fibrillation I48.91 Hypokalemia E87.6 Epistaxis R04.0
[2023-06-13] MEDS ORDERED: OXYMETAZOLINE 0.05% 30 ML BTL PRN (16:13)
[2023-06-13] MEDS ORDERED: SODIUM CHLORIDE 0.65% NA SOLN 45 ML (OCEAN) PRN (16:13)
[2023-06-13] MEDS ORDERED: METOPROLOL TARTRATE 50 MG TAB PEG STA (16:46)
[2023-06-13] MEDS: DIGOXIN 0.125 MG TAB PO SCH (17:21)
[2023-06-13] MEDS: SENNOSIDES 8.8 MG/5 ML UDC PEG SCH (17:21)
[2023-06-13] MEDS: MUPIROCIN 2% OINT 22 GM TUBE EXT SCH ×2 (17:24→20:39)
[2023-06-13] MEDS: SIMVASTATIN 20 MG TAB PEG SCH (20:39)
[2023-06-13] MEDS: METOPROLOL TARTRATE 50 MG TAB PEG SCH (20:39)
[2023-06-14] MEDS: TUBE FEEDING WATER FLUSH PEG SCH ×6 (03:15→21:00)
[2023-06-14] MEDS: amLODIPine BESYLATE 5 MG TAB PEG SCH (09:23)
[2023-06-14] MEDS: APIXABAN 5 MG TABLET PO SCH ×2 (09:23→20:59)
[2023-06-14] MEDS: ASPIRIN 81 MG CHEW PEG SCH (09:23)
[2023-06-14] MEDS: METOPROLOL TARTRATE 50 MG TAB PEG SCH ×2 (09:23→20:59)
[2023-06-14] MEDS: MUPIROCIN 2% OINT 22 GM TUBE EXT SCH ×2 (09:25→21:00)
[2023-06-14] MEDS: POLYETHYLENE (MIRALAX) 17 GM PACK PEG SCH (09:25)
[2023-06-14] MEDS: SENNOSIDES 8.8 MG/5 ML UDC PEG SCH (09:25)
[2023-06-14 10:59] LABS: BUN Creatinine Ratio 34.5 (10-20); Calcium 9.3 mg/dl (8.6-10.3); Creatinine Clr Calc Pharmacy 91.8 ml/min; Est GFR (Non-African American) 94.9 ml/min; Potassium 3.5 mmol/L (3.5-5.1)
[2023-06-14] MEDS: REMDESIVIR 100 MG in SODIUM CHLORIDE 0.9% 230 ML IV SCH (11:38)
--- NOTE | 2023-06-14 13:47 | XRay Report ---
SINGLE VIEW CHEST CLINICAL HISTORY: Covid. Hemoptysis. FINDINGS: An AP, portable, upright chest radiograph is compared to study dated 06/10/2023. A single-l ead cardiac pacemaker is unchanged in position and partially obscures the left mid chest. The the hea rt is enlarged noting atherosclerotic calcification of the thoracic aorta. The pulmonary vasculature is noncongested. Chronic interstitial thickening is similar to previous. There is bibasilar scarring/ atelectasis. The lungs and pleural spaces are otherwise clear. No pneumothorax is seen. The skeletal structures are osteopenic. The bony thorax is grossly intact. IMPRESSION: 1. Cardiomegaly and cardiac pacemaker without radiographic evidence of congestive failure. 2. No airspace consolidation or large pleural effusion is identified. ACT 112: Negative or not required by law. Electronically signed by: Alex Pham M.D. 06/14/2023 1:46 PM
[2023-06-14] MEDS: FIBERSOURCE HN 1.2 CAL 1000 ML BAG GT SCH (14:00)
[2023-06-14] MEDS: DIGOXIN 0.125 MG TAB PO SCH (15:09)
--- NOTE | 2023-06-14 20:12 | Hospitalist Progress Note ---
Date of Service June 14, 2023 Assessment & Plan (1) COVID: Plan: mild disease, but was at higher risk of disease progression - thus, receiving IV remdesivir. day #4 of such. no hypoxia or pneumonia - deferring on dexamethasone. CXR today stable. AST wnl. ALT wnl. cont airborne precautions. (2) Gastrojejunostomy tube dislodgement: Plan: PEG tube got dislodged on 06/12/23. GI consulted; Dr Paige placed a new tube on 06/12. Adaptor now in place and tube working without issues. Typical PEG tube feeding regimen - Jevity 1.5 QID at 0900, 1300, 1700 and 2100 with free water flushes Using tube feeding equivalent of such while here. He is now up to 60cc/hr of his continuous feedings w/o issue. (3) Elevated troponin: Plan: HS troponin 129 --> 145, then fell. ST-T wave changes present on EKG. Patient without chest pain. Patient and family would not opt for invasive procedure at this time and requested no further Troponin checks. In fact I tried to get an EKG today for stability purposes and he declined the EKG. At minimum the mild troponin elevation was likely due to myocardial demand ischemia from his COVID-19 illness. Continue ASA, Metoprolol, Simvastatin. (4) CVA (cerebral vascular accident): Plan: Continue ASA 81mg po daily and Simvastatin for secondary prevention. NPO due to prior CVA. PEG tube in place. Patient is strict NPO. Medications are crushed and administered through tube. (5) CAD (coronary artery disease): Plan: Details of his CAD are uncertain Cont asa Cont statin Cont BB Troponin elevation noted (6) Atrial fibrillation: Plan: Continue Digoxin Continue Metoprolol BID Continue Eliquis BID (7) Hypokalemia: Plan: replaced resolved (8) Epistaxis: Plan: has such at home from time to time this is in the setting of chronic asa and Eliquis use transient bleed on 06/13 - has not recurred cont bactroban ointment BID to keep nose moist cont afrin nasal spray prn for active bleed cont nasal saline spray prn for dryness Plan DVT proph - Eliquis 1 episode of hemoptysis - suspect it was old blood from his nosebleed cxr stable, and no further hemoptysis cont to place all sputum in collection bag to monitor this issue PT/OT carlitos completed patient wanting rehab post-dc Admission and Anticipated Discharge Date Admission Date: June 11, 2023 Subjective apparently had an episode of coughing up blood overnight none since he is coughing any sputum into an emesis bag and all the contents I saw were nonbloody no further nosebleeds no dyspnea fatigue/weakness remain no other new issues Review of Systems Review of Systems: gen - no fevers or chills cv - no chest pain pulm - no wheeze or dyspnea GI - no abd pain/nausea/emesis Physical Exam Physical Exam: gen - NAD, mild cough with yellow sputum production mouth - MMM neck - no JVD nose - no active bleeding either nare heart - irregularly irregular, s1 s2, no murmur lungs - CTA b/l; no rales, no wheeze abd - soft NT ND BS+; PEG tube insertion site clean/dry ext - no edema, pulses 2+ b/l psych - affect flat Results & Data Results & Data Vital Signs (Past 12 Hours) Vital Signs Temp Pulse Pulse Pulse Resp BP Pulse Ox 06/14/23 19:53 37.1 C 83 16 178/62 H 93 06/14/23 16:50 76 06/14/23 15:23 36.5 C 100 H 18 147/76 H 97 06/14/23 15:09 78 06/14/23 10:55 36.6 C 83 20 128/67 94 06/14/23 09:15 O2 Del Method 06/14/23 19:53 Room Air 06/14/23 16:50 06/14/23 15:23 Room Air 06/14/23 15:09 06/14/23 10:55 Room Air 06/14/23 09:15 Room Air Laboratory Results Laboratory Results - last 24 hr 06/14/23 10:16 Sodium 138 Potassium 3.5 Chloride 96 L Carbon Dioxide 36 H Anion Gap 6 BUN 20 Creatinine 0.58 L Est Cr Clr Drug Dosing 91.8 Est GFR ( Amer) 110.0 Est GFR (Non-Af Amer) 94.9 BUN/Creatinine Ratio 34.5 H Glucose 135 H Calcium 9.3 AST 33 ALT 21 Diagnostic Findings Chest X-Ray 06/14/23 11:13 SINGLE VIEW CHEST CLINICAL HISTORY: Covid. Hemoptysis. FINDINGS: An AP, portable, upright chest radiograph is compared to study dated 06/10/2023. A single-lead cardiac pacemaker is unchanged in position and partially obscures the left mid chest. The the heart is enlarged noting atherosclerotic calcification of the thoracic aorta. The pulmonary vasculature is noncongested. Chronic interstitial thickening is similar to previous. There is bibasilar scarring/atelectasis. The lungs and pleural spaces are otherwise clear. No pneumothorax is seen. The skeletal structures are osteopenic. The bony thorax is grossly intact. IMPRESSION: 1. Cardiomegaly and cardiac pacemaker without radiographic evidence of congestive failure. 2. No airspace consolidation or large pleural effusion is identified. ACT 112: Negative or not required by law. Electronically signed by: Alex Pham M.D. 06/14/2023 1:46 PM PG Care Time/CCT Total # of Minutes Spent Total Time Spent with Patient: Total time spent is greater than 50% in coordination of care (as documented) at patient's floor/unit and/or counseling patient: Coding Level of Care Code 02096 SUB INP/OBS CARE 2/35MIN Diagnoses COVID U07.1 Gastrojejunostomy tube dislodgement T85.528A Elevated troponin R79.89 CVA (cerebral vascular accident) I63.9 CAD (coronary artery disease) I25.10 Atrial fibrillation I48.91 Hypokalemia E87.6 Epistaxis R04.0
[2023-06-14] MEDS: SIMVASTATIN 20 MG TAB PEG SCH (20:59)
[2023-06-15] MEDS: TUBE FEEDING WATER FLUSH PEG SCH ×6 (03:46→22:30)
[2023-06-15 07:20] LABS: Hematocrit (blood only) 40.5 % (42.0-52.0); Hemoglobin 13.2 g/dl (14.0-18.0); Mean Corpuscular Hemoglobin 27.2 pg (25.0-34.0); Mean Corpuscular Hgb Conc 32.6 g/dL (32.0-36.0); Mean Corpuscular Volume 83.3 fL (80.0-100.0); Mean Platelet Volume 9.8 fL (9.4-12.4); Platelet Count 272 K/uL (130-400); Red Blood Count 4.86 M/uL (4.70-6.10); White Blood Count 9.23 K/ul (4.8-10.8)
[2023-06-15 07:29] LABS: BUN Creatinine Ratio 38.2 (10-20); Calcium 9.1 mg/dl (8.6-10.3); Creatinine Clr Calc Pharmacy 96.8 ml/min; Est GFR (African American) 112.5 ml/min; Potassium 3.7 mmol/L (3.5-5.1)
[2023-06-15] MEDS: ASPIRIN 81 MG CHEW PEG SCH (08:57)
[2023-06-15] MEDS: POLYETHYLENE (MIRALAX) 17 GM PACK PEG SCH (08:57)
[2023-06-15] MEDS: amLODIPine BESYLATE 5 MG TAB PEG SCH (08:58)
[2023-06-15] MEDS: METOPROLOL TARTRATE 50 MG TAB PEG SCH ×2 (08:58→19:45)
[2023-06-15] MEDS: SENNOSIDES 8.8 MG/5 ML UDC PEG SCH (08:58)
[2023-06-15] MEDS: APIXABAN 5 MG TABLET PO SCH ×2 (08:58→19:45)
[2023-06-15] MEDS: MUPIROCIN 2% OINT 22 GM TUBE EXT SCH ×2 (08:58→19:46)
[2023-06-15] MEDS: FIBERSOURCE HN 1.2 CAL 1000 ML BAG GT SCH ×2 (09:00→22:30)
[2023-06-15] MEDS: REMDESIVIR 100 MG in SODIUM CHLORIDE 0.9% 230 ML IV SCH (11:45)
[2023-06-15] MEDS: DIGOXIN 0.125 MG TAB PO SCH (15:28)
[2023-06-15] MEDS: SIMVASTATIN 20 MG TAB PEG SCH (19:45)
--- NOTE | 2023-06-15 20:29 | Hospitalist Progress Note ---
Date of Service June 15, 2023 Assessment & Plan (1) COVID: Plan: IMPROVING. mild disease, but was at higher risk of disease progression - thus, received IV remdesivir. day #5 today - stop after today's dose. no hypoxia or pneumonia - continue to defer dexamethasone. CXR yesterday stable. AST wnl. ALT wnl. Cr stable. cont airborne precautions. (2) Gastrojejunostomy tube dislodgement: Plan: PEG tube got dislodged on 06/12/23. GI consulted; Dr Paige placed a new tube on 06/12. Adaptor now in place and tube working without issues. Typical PEG tube feeding regimen - Jevity 1.5 QID at 0900, 1300, 1700 and 2100 with free water flushes Using tube feeding equivalent of such while here. He is now up to 60cc/hr of his continuous feedings w/o issue. (3) Elevated troponin: Plan: HS troponin 129 --> 145, then fell. ST-T wave changes present on EKG. Patient without chest pain. Patient and family would not opt for invasive procedure at this time and requested no further Troponin checks. In fact I tried to get an EKG yesterday for stability purposes and he declined the EKG. At minimum the mild troponin elevation was likely due to myocardial demand ischemia from his COVID-19 illness. Continue ASA, Metoprolol, Simvastatin. (4) CVA (cerebral vascular accident): Plan: Continue ASA 81mg po daily and Simvastatin for secondary prevention. NPO due to prior CVA. PEG tube in place. Patient is strict NPO. Medications are crushed and administered through tube. (5) CAD (coronary artery disease): Plan: Details of his CAD are uncertain Cont asa Cont statin Cont BB Troponin elevation noted (6) Atrial fibrillation: Plan: Continue Digoxin Continue Metoprolol BID Continue Eliquis BID stable/controlled (7) Hypokalemia: Plan: replaced resolved (8) Epistaxis: Plan: has such at home from time to time this is in the setting of chronic asa and Eliquis use transient bleed on 06/13/23 - has not recurred cont bactroban ointment BID to keep nose moist cont afrin nasal spray prn for active bleed cont nasal saline spray prn for dryness Plan DVT proph - Eliquis 1 episode of hemoptysis yesterday - suspect it was old blood from his nosebleed cxr stable, and no further hemoptysis cont to place all sputum in collection bag to monitor this issue but it has not recurred PT/OT carlitos completed patient wanting rehab post-dc referral to [facility] pending updated pt's son by phone this evening Admission and Anticipated Discharge Date Admission Date: June 11, 2023 Subjective no new issues overnight sitting in chair comfortably eating well mild cough - no change no hemoptysis no further nosebleeding nursing staff report he had a BM today Review of Systems Review of Systems: gen - no fevers or chills; just tired cv - no chest pain pulm - no dyspnea or DIAL GI - no abd pain, nausea or emesis Physical Exam Physical Exam: gen - NAD, looks good today mouth - MMM neck - no JVD nose - no active bleeding either nare heart - irregularly irregular, s1 s2, no murmur lungs - CTA b/l; no rales, no wheeze; good airation abd - soft NT ND BS+; PEG tube insertion site clean/dry ext - no edema, pulses 2+ b/l Results & Data Results & Data Vital Signs (Past 12 Hours) Vital Signs Temp Pulse Pulse Resp BP BP Pulse Ox 06/15/23 20:00 36.9 C 82 18 138/75 97 06/15/23 15:33 36.6 C 79 18 150/74 H 97 06/15/23 15:28 78 06/15/23 14:00 81 06/15/23 11:42 37.0 C 76 14 143/73 H 95 06/15/23 08:45 O2 Del Method 06/15/23 20:00 Room Air 06/15/23 15:33 Room Air 06/15/23 15:28 06/15/23 14:00 06/15/23 11:42 Room Air 06/15/23 08:45 Room Air Laboratory Results Laboratory Results - last 24 hr 06/15/23 06:37 WBC 9.23 RBC 4.86 Hgb 13.2 L Hct 40.5 L MCV 83.3 MCH 27.2 MCHC 32.6 RDW Std Deviation 46.0 RDW Coeff of Kathrin 15.0 H Plt Count 272 MPV 9.8 Sodium 138 Potassium 3.7 Chloride 98 Carbon Dioxide 33 H Anion Gap 7 BUN 21 Creatinine 0.55 L Est Cr Clr Drug Dosing 96.8 Est GFR ( Amer) 112.5 Est GFR (Non-Af Amer) 97.0 BUN/Creatinine Ratio 38.2 H Glucose 140 H Calcium 9.1 AST 29 ALT 19 PG Care Time/CCT Total # of Minutes Spent Total Time Spent with Patient: Total time spent is greater than 50% in coordination of care (as documented) at patient's floor/unit and/or counseling patient: Coding Level of Care Code 26872 SUB INP/OBS CARE 2/35MIN Diagnoses COVID U07.1 Gastrojejunostomy tube dislodgement T85.528A Elevated troponin R79.89 CVA (cerebral vascular accident) I63.9 CAD (coronary artery disease) I25.10 Atrial fibrillation I48.91 Hypokalemia E87.6 Epistaxis R04.0
[2023-06-16] MEDS: TUBE FEEDING WATER FLUSH PEG SCH ×6 (03:18→21:00)
[2023-06-16 08:05] LABS: Alanine Aminotransferase 18 U/L (7-52); Aspartate Aminotransferase 24 U/L (13-39)
[2023-06-16] MEDS: MUPIROCIN 2% OINT 22 GM TUBE EXT SCH ×2 (09:07→20:59)
[2023-06-16] MEDS: METOPROLOL TARTRATE 50 MG TAB PEG SCH ×2 (09:08→20:59)
[2023-06-16] MEDS: SENNOSIDES 8.8 MG/5 ML UDC PEG SCH (09:08)
[2023-06-16] MEDS: POLYETHYLENE (MIRALAX) 17 GM PACK PEG SCH (09:09)
[2023-06-16] MEDS: ASPIRIN 81 MG CHEW PEG SCH (09:09)
[2023-06-16] MEDS: amLODIPine BESYLATE 5 MG TAB PEG SCH (09:09)
[2023-06-16] MEDS: APIXABAN 5 MG TABLET PO SCH ×2 (09:10→20:59)
[2023-06-16] MEDS: FIBERSOURCE HN 1.2 CAL 1000 ML BAG GT SCH (13:39)
[2023-06-16] MEDS: DIGOXIN 0.125 MG TAB PO SCH (16:29)
--- NOTE | 2023-06-16 20:22 | Hospitalist Progress Note ---
Date of Service June 16, 2023 Assessment & Plan (1) COVID: Plan: IMPROVING/resolving mild disease, but was at higher risk of disease progression - thus, received IV remdesivir. completed 5-day course of such. no hypoxia or pneumonia at any time. most recent CXR wnl. AST wnl. ALT wnl. cont airborne precautions. (2) Gastrojejunostomy tube dislodgement: Plan: PEG tube got dislodged on 06/12/23. GI consulted; Dr Paige placed a new tube on 06/12. Adaptor now in place and tube working without issues. Typical PEG tube feeding regimen at home - Jevity 1.5 QID at 0900, 1300, 1700 and 2100 with free water flushes --> will resume at discharge Using tube feeding equivalent of such while here. He is now up to 60cc/hr of his continuous feedings w/o issue. (3) Elevated troponin: Plan: HS troponin 129 --> 145, then fell. ST-T wave changes present on EKG. Patient without chest pain. Patient and family would not opt for invasive procedure at this time and requested no further Troponin checks. In fact I tried to get an EKG yesterday for stability purposes and he declined the EKG. At minimum the mild troponin elevation was likely due to myocardial demand ischemia from his COVID-19 illness. Continue ASA, Metoprolol, Simvastatin. (4) CVA (cerebral vascular accident): Plan: Continue ASA 81mg po daily and Simvastatin for secondary prevention. NPO due to prior CVA. PEG tube in place. Patient is strict NPO. Medications are crushed and administered through tube. (5) CAD (coronary artery disease): Plan: Details of his CAD are uncertain Cont asa Cont statin Cont BB Troponin elevation noted (6) Atrial fibrillation: Plan: Continue Digoxin Continue Metoprolol BID Continue Eliquis BID stable/controlled (7) Hypokalemia: Plan: replaced resolved (8) Epistaxis: Plan: has such at home from time to time this is in the setting of chronic asa and Eliquis use transient bleed on 06/13/23 - has not recurred cont bactroban ointment BID to keep nose moist cont afrin nasal spray prn for active bleed cont nasal saline spray prn for dryness Plan DVT proph - Eliquis unfortunately his insurance denied request for rehab at [facility] insurance did approve SNF I performed peer to peer process w/ his insurance- denial upheld social work was in contact with pt's grand-daughter throughout the day grand-daughter was to aquatics group fitness instructor patient to return home (family did not want SNF for rehab) patient voiced that he did not want to d/c home today; preferred d/c tomorrow I then received a [place] message late in the day that pt's family now considering [facility] SNF for rehab?? will need to confirm this tomorrow Admission and Anticipated Discharge Date Admission Date: June 11, 2023 Subjective tele stable overnight no new issues pt's insurance denied auth for [facility] rehab I performed [id number] -- denial upheld but approved for SNF during my rounds he was anxious that the new PEG Tube wouldn't be compatible with his equipment at home also c/o cough weakness present no hemoptysis no epistaxis Review of Systems Review of Systems: gen - weak, fatigue cv - no chest pain GI - no abdominal pain, no N/V pulm - no dyspnea at rest; did not have DIAL with working with PT Physical Exam Physical Exam: gen - NAD, coughing at times mouth - MMM neck - no JVD nose - no epistaxis heart - irregularly irregular, s1 s2, no murmur lungs - CTA b/l; no rales, no wheeze; no increased work of breathing abd - soft NT ND BS+; PEG tube insertion site clean/dry ext - no edema, pulses 2+ b/l Results & Data Results & Data Vital Signs (Past 12 Hours) Vital Signs Temp Pulse Pulse Resp BP BP Pulse Ox 06/16/23 19:53 36.3 C L 80 16 148/72 H 97 06/16/23 17:46 82 153/80 H 152/79 H 06/16/23 16:29 77 06/16/23 14:49 36.7 C 85 18 120/36 L 97 06/16/23 14:12 75 06/16/23 11:03 36.5 C 74 18 138/72 95 O2 Del Method 06/16/23 19:53 Room Air 06/16/23 17:46 06/16/23 16:29 06/16/23 14:49 Room Air 06/16/23 14:12 01/04/24 11:03 Room Air Laboratory Results Laboratory Results - last 24 hr 06/16/23 07:21 AST 24 ALT 18 PG Care Time/CCT Total # of Minutes Spent Total Time Spent with Patient: Total time spent is greater than 50% in coordination of care (as documented) at patient's floor/unit and/or counseling patient: Coding Level of Care Code 04295 SUB INP/OBS CARE 2/35MIN Diagnoses COVID U07.1 Gastrojejunostomy tube dislodgement T85.528A Elevated troponin R79.89 CVA (cerebral vascular accident) I63.9 CAD (coronary artery disease) I25.10 Atrial fibrillation I48.91 Hypokalemia E87.6 Epistaxis R04.0
[2023-06-16] MEDS: SIMVASTATIN 20 MG TAB PEG SCH (20:59)
[2023-06-17] MEDS: TUBE FEEDING WATER FLUSH PEG SCH ×3 (03:34→10:03)
[2023-06-17] MEDS: FIBERSOURCE HN 1.2 CAL 1000 ML BAG GT SCH (06:05)
--- NOTE | 2023-06-17 09:32 | Hospitalist Progress Note ---
Date of Service June 17, 2023 Assessment & Plan (1) COVID: Plan: IMPROVING/resolving mild disease, but was at higher risk of disease progression - thus, received IV remdesivir. completed 5-day course of such. no hypoxia or pneumonia at any time. most recent CXR wnl. AST wnl. ALT wnl. cont airborne precautions. (2) Gastrojejunostomy tube dislodgement: Plan: PEG tube got dislodged on 06/12/23. GI consulted; Dr Paige placed a new tube on 06/12. Adaptor now in place and tube working without issues. Typical PEG tube feeding regimen at home - Jevity 1.5 QID at 0900, 1300, 1700 and 2100 with free water flushes --> will resume at discharge Using tube feeding equivalent of such while here. He is now up to 60cc/hr of his continuous feedings w/o issue. (3) Elevated troponin: Plan: HS troponin 129 --> 145, then fell. ST-T wave changes present on EKG. Patient without chest pain. Patient and family would not opt for invasive procedure at this time and requested no further Troponin checks. In fact I tried to get an EKG yesterday for stability purposes and he declined the EKG. At minimum the mild troponin elevation was likely due to myocardial demand ischemia from his COVID-19 illness. Continue ASA, Metoprolol, Simvastatin. (4) CVA (cerebral vascular accident): Plan: Continue ASA 81mg po daily and Simvastatin for secondary prevention. NPO due to prior CVA. PEG tube in place. Patient is strict NPO. Medications are crushed and administered through tube. (5) CAD (coronary artery disease): Plan: Details of his CAD are uncertain Cont asa Cont statin Cont BB Troponin elevation noted (6) Atrial fibrillation: Plan: Continue Digoxin Continue Metoprolol BID Continue Eliquis BID stable/controlled (7) Hypokalemia: Plan: replaced resolved (8) Epistaxis: Plan: has such at home from time to time this is in the setting of chronic asa and Eliquis use transient bleed on 06/13/23 - has not recurred cont bactroban ointment BID to keep nose moist cont afrin nasal spray prn for active bleed cont nasal saline spray prn for dryness Plan DVT proph - Eliquis unfortunately his insurance denied request for rehab at [facility] insurance did approve SNF I performed peer to peer process w/ his insurance- denial upheld social work was in contact with pt's grand-daughter throughout the day grand-daughter was to pick up driver patient to return home (family did not want SNF for rehab) patient voiced that he did not want to d/c home today; preferred d/c tomorrow I then received a [place] message late in the day that pt's family now considering [facility] for rehab?? will need to confirm this tomorrow Admission and Anticipated Discharge Date Admission Date: June 11, 2023 Physical Exam Physical Exam: gen - NAD, coughing at times mouth - MMM neck - no JVD nose - no epistaxis heart - irregularly irregular, s1 s2, no murmur lungs - CTA b/l; no rales, no wheeze; no increased work of breathing abd - soft NT ND BS+; PEG tube insertion site clean/dry ext - no edema, pulses 2+ b/l Results & Data Results & Data Vital Signs (Past 12 Hours) Vital Signs Temp Pulse Pulse Pulse Resp BP BP 06/17/23 07:20 36.6 C 77 16 148/77 H 06/17/23 04:14 36.4 C L 73 18 124/73 06/17/23 00:23 69 06/16/23 23:25 37.0 C 73 16 143/74 H 06/16/23 23:19 Pulse Ox O2 Del Method 06/17/23 07:20 96 Room Air 06/17/23 04:14 96 Room Air 06/17/23 00:23 06/16/23 23:25 95 Room Air 06/16/23 23:19 Room Air PG Care Time/CCT Total # of Minutes Spent Total Time Spent with Patient: Total time spent is greater than 50% in coordination of care (as documented) at patient's floor/unit and/or counseling patient: Coding Diagnoses COVID U07.1 Gastrojejunostomy tube dislodgement T85.528A Elevated troponin R79.89 CVA (cerebral vascular accident) I63.9 CAD (coronary artery disease) I25.10 Atrial fibrillation I48.91 Hypokalemia E87.6 Epistaxis R04.0
[2023-06-17] MEDS: METOPROLOL TARTRATE 50 MG TAB PEG SCH (09:51)
[2023-06-17] MEDS: APIXABAN 5 MG TABLET PO SCH (09:51)
[2023-06-17] MEDS: amLODIPine BESYLATE 5 MG TAB PEG SCH (09:51)
[2023-06-17] MEDS: SENNOSIDES 8.8 MG/5 ML UDC PEG SCH (09:52)
[2023-06-17] MEDS: POLYETHYLENE (MIRALAX) 17 GM PACK PEG SCH (09:52)
[2023-06-17] MEDS: ASPIRIN 81 MG CHEW PEG SCH (09:52)
[2023-06-17] MEDS: MUPIROCIN 2% OINT 22 GM TUBE EXT SCH (09:58)
== END 2023-06-17 16:51 | DRG 178 ==
LOC: ED 22:03 → EDINP 06-11 06:43 → SUATTDRO 06-11 06:43 → 2N 06-11 10:28